=== PATIENT | male | born 1970 | race Two or more races ===

== ENCOUNTER 2024-11-03 08:43 | Outpatient (CLI) | payer OTHER | END 2024-11-03 08:51 | disposition home or self-care (01) | LOC: SONOGRAMA 08:43 | DX: N40.1 Benign prostatic hyperplasia with lower urinary tract symptoms (principal) ==

== ENCOUNTER 2024-11-10 08:32 | Outpatient (CLI) | payer OTHER | END 2024-11-10 08:34 | disposition home or self-care (01) | LOC: TOM 08:32 | PROVIDERS: ATTEND Internal Medicine | DX: R10.2 Pelvic and perineal pain (principal); R10.10 Upper abdominal pain, unspecified ==

== ENCOUNTER 2025-02-07 09:43 | Outpatient (CLI) | payer OTHER ==
[2025-02-07] MEDS ORDERED: ABILIFY10 MG PO (15:03)
[2025-02-07] MEDS ORDERED: DEPAKOTE ER500 MG PO (15:03)
[2025-02-07] MEDS ORDERED: CLONAZEPAM1 MG PO (15:03)
[2025-02-07] MEDS ORDERED: WARFARIN SODIU2.5 MG PO (15:04)
[2025-02-07] MEDS ORDERED: [UNRECOGNIZED DRUG - OTHER] (15:07)
[2025-02-07] MEDS ORDERED: CLEOCIN HCL300 MG PO (15:10)
== END 2025-02-07 09:51 | disposition home or self-care (01) ==
LOC: RAD 09:43
PROVIDERS: ATTEND Surgery
DX: K60.30 Anal fistula, unspecified (principal); R19.4 Change in bowel habit; D37.4 Neoplasm of uncertain behavior of colon

== ENCOUNTER 2025-02-15 06:00 | Day surgery (SDC) | payer OTHER ==
[2025-02-07 15:48] LABS: INR 2.12
[2025-02-07 15:49] LABS: PARTIAL THROMBOPLASTIN TIME 45.8 SECONDS (22.0-34.0); PROTHROMBIN TIME 21.9 SECONDS (9.0-11.5)
[~2025-02-15 06:00] MED LIST: ABILIFY10 MG PO; CLEOCIN HCL300 MG PO; CLONAZEPAM1 MG PO; DEPAKOTE ER500 MG PO; WARFARIN SODIU2.5 MG PO; [UNRECOGNIZED DRUG - OTHER]
[2025-02-15] MEDS ORDERED: DIBUCAINE 30 GM TUBE ONE (08:37)
[2025-02-15] MEDS ORDERED: POVIDONE-IODINE 118 ML BOTT TOP ONE (08:37)
[2025-02-15] MEDS ORDERED: HEMOSTATIC MATRIX 1 KIT KIT TOP ONE (08:37)
[2025-02-15] MEDS ORDERED: LIDOCAINE HCL 1%/EPINEPHRINE 20ML VIAL IJ ONE (08:37)
[2025-02-15] MEDS ORDERED: BUPIVACAINE HCL/MPF 0.5% 30ML VIAL ONE (08:37)
[2025-02-15] MEDS ORDERED: METRONIDAZOLE/SODIUM CHLORIDE 500 MG/100 ML PIGGYBACK IV ONE (08:47)
[2025-02-15] MEDS ORDERED: SUGAMMADEX SODIUM 200 MG/2 ML VIAL IV ONE (09:35)
[2025-02-15] MEDS ORDERED: PERCOCET 5-3251 EACH PO (10:02)
[2025-02-15] MEDS ORDERED: RECTICARE30 GM TOP (10:02)
[2025-02-15] MEDS ORDERED: MORPHINE SULFATE 4 MG/ML VIAL IV ONE (12:10)
== END 2025-02-15 13:20 | disposition home or self-care (01) ==
LOC: CIR.AMB 06:00
PROVIDERS: ATTEND Surgery
DX: K60.322 Anal fistula, complex, persistent (principal); K60.321 Anal fistula, complex, initial; Z88.0 Allergy status to penicillin